=== PATIENT | male | born 1945 | race Caucasian/White ===

== ENCOUNTER 2017-11-24 08:29 | Inpatient (IN) | payer OTHER ==
[~2017-11-24] VITALS: Ht 167.6 cm; Wt 148.0 kg
[2017-11-24] VITALS (10 sets, daily range): BP systolic 70–112; BP diastolic 50–76
[2017-11-24 08:51] LABS: BASOPHIL (%) 0.7 % (0-1); BASOPHIL COUNT 0.1 K/uL (0-0.1); EOSINOPHIL (%) 4.4 % (0-5); EOSINOPHIL COUNT 0.8 K/uL (0-0.3); HEMATOCRIT 35.9 % (38.0-50.0); HEMOGLOBIN 11.5 G/DL (12.5-16.6); IMMATURE GRANULOCYTE (%) 2.3 % (0.0-0.7); LYMPHOCYTE (%) 25.2 % (15-42); LYMPHOCYTE COUNT 4.6 K/uL (1.0-2.8); MCH 26.3 PG (29.0-34.0); MONOCYTE (%) 6.9 % (3-12); MONOCYTE COUNT 1.3 K/uL (0-0.8); NEUTROPHIL (%) 60.5 % (45-76); PLATELET COUNT 362 K/uL (156-360); RBC DIS.WIDTH-CV 14.9 % (11.8-14.6); RBC DIS.WIDTH-SD 44.3 % (39-53); RED BLOOD COUNT 4.38 M/uL (4.00-5.50); WHITE BLOOD COUNT 18.1 K/uL (4.1-10.2)
[2017-11-24 08:56] LABS: INTER. NORMALIZED RATIO 1.2
[2017-11-24 08:59] LABS: PTT 29.5 SEC (25-37)
[2017-11-24 09:04] LABS: COMMENTS - BLOOD GASES A+C+; DEVICE VENT; FI02 60 %; PCO2 42 mm Hg (35-45); PEEP 5 CM/H20; PO2 127 mm Hg (80-100); PRES. SUPPORT 15 CM/H2O; SITE LR; TIDAL VOLUME 500 ML; TOTAL RESP RATE 23 resp/min
[2017-11-24 09:05] LABS: BASE EXCESS -5.4 mEq/L (-3 to +3); BICARBONATE 20.7 mEq/L (22-26); CARBOXY HGB 1.2 % (0-5); METHEMOGLOBIN 0.7 % (0-1.5)
[2017-11-24 09:20] LABS: CHLORIDE 104 MEQ/L (99-109); CREATININE 1.9 MG/DL (0.6-1.3); GFR ESTIMATE (CALCULATED) 37 mL/min/ (58.99-99999); GLUCOSE 308 mg/dL (70-99); MAGNESIUM 1.3 mg/dl (1.3-2.7); POTASSIUM 4.3 MEQ/L (3.7-5.4); SODIUM 139 MEQ/L (136-147); UREA NITROGEN (BUN) 33 mg/dL (9-23)
[2017-11-24 09:27] LABS: TROP-I INTERPRETATION NEGATIVE; TROPONIN-I < 0.01 ng/mL (0.0-0.30)
[2017-11-24] MEDS ORDERED: METFORMIN HCL1000 MG PO (13:41)
[2017-11-24] MEDS ORDERED: POTASSIUM CHLO10 ME4 PO (13:42)
[2017-11-24] MEDS ORDERED: GLIPIZIDE5 MG PO (13:42)
[2017-11-24] MEDS ORDERED: VITAMIN D31000 UNI2 PO (13:43)
[2017-11-24] MEDS ORDERED: ASPIR-LOW81 MG PO (13:43)
[2017-11-24] MEDS ORDERED: LOSARTAN POTAS100 MG PO (13:43)
[2017-11-24] MEDS ORDERED: LASIX40 MG PO ×2 (13:43)
[2017-11-24] MEDS ORDERED: METOPROLOL TART50 MG PO (13:44)
[2017-11-24] MEDS ORDERED: RANITIDINE HCL150 MG PO (13:44)
[2017-11-24 17:56] LABS: TROP-I INTERPRETATION NEGATIVE; TROPONIN-I 0.17 ng/mL (0.0-0.30)
[2017-11-25] VITALS (24 sets, daily range): BP systolic 91–145; BP diastolic 59–92
[2017-11-25 06:29] LABS: HEMATOCRIT 32.1 % (38.0-50.0); HEMOGLOBIN 9.9 G/DL (12.5-16.6); MCH 25.3 PG (29.0-34.0); MCHC 30.8 G/DL (30.0-36.0); MCV 82.1 FL (86-99); RBC DIS.WIDTH-CV 14.9 % (11.8-14.6); RBC DIS.WIDTH-SD 44.3 % (39-53); RED BLOOD COUNT 3.91 M/uL (4.00-5.50); WHITE BLOOD COUNT 11.9 K/uL (4.1-10.2)
[2017-11-25 06:40] LABS: CHLORIDE 107 MEQ/L (99-109); CREATININE 1.9 MG/DL (0.6-1.3); GFR ESTIMATE (CALCULATED) 37 mL/min/ (58.99-99999); GLUCOSE 177 mg/dL (70-99); MAGNESIUM 1.4 mg/dl (1.3-2.7); PHOSPHORUS 4.1 mg/dL (2.5-4.9); POTASSIUM 4.2 MEQ/L (3.7-5.4); SODIUM 143 MEQ/L (136-147); UREA NITROGEN (BUN) 33 mg/dL (9-23)
[2017-11-25 06:43] LABS: PLATELET COUNT 251 K/uL (156-360)
[2017-11-25 18:41] LABS: TROP-I INTERPRETATION NEGATIVE; TROPONIN-I 0.09 ng/mL (0.0-0.30)
[2017-11-26] VITALS (19 sets, daily range): BP systolic 86–154; BP diastolic 61–133
[2017-11-26 05:22] LABS: HEMATOCRIT 31.3 % (38.0-50.0); HEMOGLOBIN 9.7 G/DL (12.5-16.6); MCH 25.4 PG (29.0-34.0); MCV 81.9 FL (86-99); PLATELET COUNT 246 K/uL (156-360); RBC DIS.WIDTH-CV 14.8 % (11.8-14.6); RBC DIS.WIDTH-SD 44.2 % (39-53); RED BLOOD COUNT 3.82 M/uL (4.00-5.50); WHITE BLOOD COUNT 11.4 K/uL (4.1-10.2)
[2017-11-26 06:03] LABS: CHLORIDE 109 MEQ/L (99-109); CREATININE 1.7 MG/DL (0.6-1.3); GFR ESTIMATE (CALCULATED) 43 mL/min/ (58.99-99999); GLUCOSE 167 mg/dL (70-99); MAGNESIUM 1.6 mg/dl (1.3-2.7); PHOSPHORUS 4.5 mg/dL (2.5-4.9); POTASSIUM 4.2 MEQ/L (3.7-5.4); SODIUM 145 MEQ/L (136-147); UREA NITROGEN (BUN) 29 mg/dL (9-23)
[2017-11-27] VITALS (20 sets, daily range): BP systolic 75–166; BP diastolic 48–127
[2017-11-27 05:14] LABS: HEMATOCRIT 31.4 % (38.0-50.0); HEMOGLOBIN 9.9 G/DL (12.5-16.6); MCHC 31.5 G/DL (30.0-36.0); MCV 82.4 FL (86-99); PLATELET COUNT 239 K/uL (156-360); RBC DIS.WIDTH-CV 14.8 % (11.8-14.6); RED BLOOD COUNT 3.81 M/uL (4.00-5.50); WHITE BLOOD COUNT 11.4 K/uL (4.1-10.2)
[2017-11-27 06:00] LABS: CHLORIDE 108 MEQ/L (99-109); CREATININE 1.8 MG/DL (0.6-1.3); GFR ESTIMATE (CALCULATED) 40 mL/min/ (58.99-99999); GLUCOSE 288 mg/dL (70-99); MAGNESIUM 1.7 mg/dl (1.3-2.7); PHOSPHORUS 4.4 mg/dL (2.5-4.9); POTASSIUM 4.1 MEQ/L (3.7-5.4); SODIUM 142 MEQ/L (136-147); UREA NITROGEN (BUN) 30 mg/dL (9-23)
[2017-11-27 08:51] LABS: CARBOXY HGB 1.4 % (0-5); PCO2 39 mm Hg (35-45); PO2 69 mm Hg (80-100); pH 7.38 (7.35-7.45)
[2017-11-27 08:52] LABS: BASE EXCESS -1.8 mEq/L (-3 to +3); BICARBONATE 23.1 mEq/L (22-26); COMMENTS - BLOOD GASES A+C+; DEVICE NC; METHEMOGLOBIN 0.7 % (0-1.5); O2 FLOW 4 L/MIN; SITE RR; TOTAL RESP RATE 20 resp/min
[2017-11-27 09:11] LABS: APPEARANCE CLOUDY ((CLEAR)); BILIRUBIN NEGATIVE; BLOOD NEGATIVE; COLOR YELLOW ((YELLOW)); GLUCOSE (STRIP) 50; KETONES NEGATIVE; LEUKOCYTES NEGATIVE; NITRITE NEGATIVE; PROTEIN (STRIP) NEGATIVE; UROBILINOGEN 0.2 MG/DL (0.2-1.0)
[2017-11-27 10:06] LABS: BACTERIA NONE SEEN /HPF; EPITHELIAL CELLS 1+ /HPF; HYALINE CASTS RARE /LPF; MUCUS NONE SEEN /LPF; RED BLOOD CELLS NONE SEEN /HPF (0-5); UCUL ADDED? NO; URIC ACID CRYSTALS 3+ /HPF; WHITE BLOOD CELLS 0-5 /HPF (0-5)
[2017-11-28] VITALS (18 sets, daily range): BP systolic 14–143; BP diastolic 46–97
[2017-11-28 05:47] LABS: HEMATOCRIT 29.7 % (38.0-50.0); HEMOGLOBIN 9.2 G/DL (12.5-16.6); MCH 25.5 PG (29.0-34.0); MCV 82.3 FL (86-99); PLATELET COUNT 225 K/uL (156-360); RBC DIS.WIDTH-CV 14.9 % (11.8-14.6); RBC DIS.WIDTH-SD 44.2 % (39-53); RED BLOOD COUNT 3.61 M/uL (4.00-5.50)
[2017-11-28 06:15] LABS: CHLORIDE 107 MEQ/L (99-109); GFR ESTIMATE (CALCULATED) 35 mL/min/ (58.99-99999); GLUCOSE 227 mg/dL (70-99); MAGNESIUM 1.9 mg/dl (1.3-2.7); PHOSPHORUS 3.8 mg/dL (2.5-4.9); POTASSIUM 4.1 MEQ/L (3.7-5.4); SODIUM 141 MEQ/L (136-147); UREA NITROGEN (BUN) 32 mg/dL (9-23)
[2017-11-28 12:30] LABS: HEMOGLOBIN A1c (GLYCOHEMOGLOB) 6.6 % (Below 5.7)
[2017-11-29] VITALS (16 sets, daily range): BP systolic 110–150; BP diastolic 66–100
[2017-11-29 05:23] LABS: HEMATOCRIT 30.3 % (38.0-50.0); HEMOGLOBIN 9.5 G/DL (12.5-16.6); MCH 25.7 PG (29.0-34.0); MCHC 31.4 G/DL (30.0-36.0); MCV 81.9 FL (86-99); PLATELET COUNT 261 K/uL (156-360); RBC DIS.WIDTH-CV 14.8 % (11.8-14.6); WHITE BLOOD COUNT 10.3 K/uL (4.1-10.2)
[2017-11-29 06:12] LABS: CHLORIDE 108 MEQ/L (99-109); CREATININE 1.9 MG/DL (0.6-1.3); GFR ESTIMATE (CALCULATED) 37 mL/min/ (58.99-99999); GLUCOSE 213 mg/dL (70-99); MAGNESIUM 2.1 mg/dl (1.3-2.7); PHOSPHORUS 3.8 mg/dL (2.5-4.9); SODIUM 143 MEQ/L (136-147); UREA NITROGEN (BUN) 31 mg/dL (9-23)
[2017-11-30 03:05] VITALS: BP 127/70
[2017-11-30 07:38] VITALS: BP 143/82
[2017-11-30 10:04] LABS: HEMATOCRIT 31.3 % (38.0-50.0); MCHC 31.9 G/DL (30.0-36.0); MCV 81.5 FL (86-99); PLATELET COUNT 261 K/uL (156-360); RBC DIS.WIDTH-CV 14.9 % (11.8-14.6); RBC DIS.WIDTH-SD 43.8 % (39-53); RED BLOOD COUNT 3.84 M/uL (4.00-5.50); WHITE BLOOD COUNT 11.2 K/uL (4.1-10.2)
[2017-11-30 10:21] LABS: CHLORIDE 108 mEq/L (99-109); POTASSIUM 4.1 mEq/L (3.7-5.4); SODIUM 143 mEq/L (136-147)
[2017-11-30 10:22] LABS: GLUCOSE 288 mg/dL (70-99)
[2017-11-30 10:26] LABS: GFR ESTIMATE (CALCULATED) 35 mL/min/ (58.99-99999)
[2017-11-30 10:27] LABS: UREA NITROGEN (BUN) 31 mg/dL (9-23)
[2017-11-30 11:34] VITALS: BP 103/55
[2017-11-30 17:09] VITALS: BP 129/45
[2017-11-30 19:01] VITALS: BP 142/83
[2017-11-30 22:54] VITALS: BP 108/64
[2017-12-01 03:46] VITALS: BP 124/63
[2017-12-01 06:32] LABS: CHLORIDE 108 MEQ/L (99-109); POTASSIUM 4.2 MEQ/L (3.7-5.4); SODIUM 143 MEQ/L (136-147)
[2017-12-01 06:38] LABS: CREATININE 2.1 MG/DL (0.6-1.3); GFR ESTIMATE (CALCULATED) 33 mL/min/ (58.99-99999); GLUCOSE 189 mg/dL (70-99); UREA NITROGEN (BUN) 36 mg/dL (9-23)
[2017-12-01 07:40] VITALS: BP 115/63
[2017-12-01 11:51] VITALS: BP 125/76
[2017-12-01] MEDS ORDERED: APRESOLINE10 MG PO (13:34)
[2017-12-01] MEDS ORDERED: LOPRESSOR100 M1 PO (13:34)
[2017-12-01] MEDS ORDERED: ELIQUIS5 MG PO (13:34)
[2017-12-01] MEDS ORDERED: FUROSEMIDE40 MG PO (13:34)
[2017-12-02] MEDS ORDERED: COZAAR100 MG PO (09:43)
[2017-12-02] MEDS ORDERED: LASIX40 MG PO ×2 (09:45→09:46)
== END 2017-12-01 16:32 | disposition home health service (06) | DRG 292 ==
LOC: EME 08:29 → EDOF 12:35 → 4WEST 12:35 → ENRESERV 12:36 → 4WEST 13:42 → ENRESERV 11-29 16:15 → 5EAST 11-29 19:06
PROVIDERS: Emergency Medicine; Internal Medicine; Internal Medicine Critical Care Medicine; Physician Assistant; Student in an Organized Health Care Education/Training Program
PROC: 5A09357 Assistance with Respiratory Ventilation, Less than 24 Consecutive Hours, Continuous Positive Airway Pressure (ICD-10-PCS; principal; 2017-11-24)
DX: I11.0 Hypertensive heart disease with heart failure (principal); I50.23 Acute on chronic systolic (congestive) heart failure; J44.9 Chronic obstructive pulmonary disease, unspecified; I25.10 Atherosclerotic heart disease of native coronary artery without angina pectoris; E66.01 Morbid (severe) obesity due to excess calories; E11.9 Type 2 diabetes mellitus without complications; I48.0 Paroxysmal atrial fibrillation; I48.92 Unspecified atrial flutter; E78.5 Hyperlipidemia, unspecified; I25.2 Old myocardial infarction; I08.0 Rheumatic disorders of both mitral and aortic valves; I27.20 Pulmonary hypertension, unspecified; Z68.43 Body mass index [BMI] 50.0-59.9, adult; I44.7 Left bundle-branch block, unspecified; G47.33 Obstructive sleep apnea (adult) (pediatric); Z79.4 Long term (current) use of insulin; I47.2 Ventricular tachycardia; T50.2X5A Adverse effect of carbonic-anhydrase inhibitors, benzothiadiazides and other diuretics, initial encounter; N28.9 Disorder of kidney and ureter, unspecified; I25.5 Ischemic cardiomyopathy; Z79.01 Long term (current) use of anticoagulants
CPT/HCPCS: 36600; 71045; 80048; 80202; 81003; 82803; 82948; 83036; 83605; 83735; 83880; 84100; 84145 90; 84484; 85025; 85027; 85610; 85730; 87040; 87641; 93005; 93306; 93970; 94002; 94003; 94640; 94660; 94760; 94799; 99281; 99285; J0692; J1815; J1940; J2543; J3370; J7030; J7040; J7050

== ENCOUNTER 2017-12-02 07:19 | Inpatient (IN) | payer OTHER ==
[2017-12-02] VITALS (24 sets, daily range): BP systolic 92–150; BP diastolic 46–110
[~2017-12-02] VITALS: Ht 167.6 cm; Wt 152.0 kg
[~2017-12-02 07:19] MED LIST: APRESOLINE10 MG PO; ASPIR-LOW81 MG PO; ELIQUIS5 MG PO; FUROSEMIDE40 MG PO; GLIPIZIDE5 MG PO; LASIX40 MG PO; LOPRESSOR100 M1 PO; LOSARTAN POTAS100 MG PO; METFORMIN HCL1000 MG PO; METOPROLOL TART50 MG PO; POTASSIUM CHLO10 ME4 PO; RANITIDINE HCL150 MG PO; VITAMIN D31000 UNI2 PO
[2017-12-02 07:40] LABS: BASOPHIL (%) 0.7 % (0-1); BASOPHIL COUNT 0.2 K/uL (0-0.1); EOSINOPHIL (%) 5.9 % (0-5); EOSINOPHIL COUNT 1.5 K/uL (0-0.3); HEMATOCRIT 34.9 % (38.0-50.0); HEMOGLOBIN 10.9 G/DL (12.5-16.6); IMMATURE GRANULOCYTE (%) 2.5 % (0.0-0.7); LYMPHOCYTE (%) 25.5 % (15-42); LYMPHOCYTE COUNT 6.3 K/uL (1.0-2.8); MCH 26.3 PG (29.0-34.0); MCHC 31.2 G/DL (30.0-36.0); MCV 84.1 FL (86-99); MONOCYTE (%) 6.9 % (3-12); MONOCYTE COUNT 1.7 K/uL (0-0.8); NEUTROPHIL (%) 58.5 % (45-76); NEUTROPHIL COUNT 14.5 K/uL (1.8-6.4); RBC DIS.WIDTH-CV 15.1 % (11.8-14.6); RBC DIS.WIDTH-SD 45.7 % (39-53); RED BLOOD COUNT 4.15 M/uL (4.00-5.50); WHITE BLOOD COUNT 24.7 K/uL (4.1-10.2)
[2017-12-02 07:41] LABS: PLATELET COUNT 375 K/uL (156-360)
[2017-12-02 07:46] LABS: INTER. NORMALIZED RATIO 1.4
[2017-12-02 07:48] LABS: PTT 31.1 SEC (25-37)
[2017-12-02 08:11] LABS: CHLORIDE 105 MEQ/L (99-109); CREATININE 2.2 MG/DL (0.6-1.3); GFR ESTIMATE (CALCULATED) 32 mL/min/ (58.99-99999); POTASSIUM 4.1 MEQ/L (3.7-5.4); SODIUM 138 MEQ/L (136-147); UREA NITROGEN (BUN) 35 mg/dL (9-23)
[2017-12-02 08:12] LABS: GLUCOSE 342 mg/dL (70-99)
[2017-12-02 08:30] LABS: TROP-I INTERPRETATION NEGATIVE; TROPONIN-I 0.03 ng/mL (0.0-0.30)
[2017-12-02 08:43] LABS: BASE EXCESS -8.9 mEq/L (-3 to +3); BICARBONATE 21 mEq/L (22-26); CARBOXY HGB 1.9 % (0-5); METHEMOGLOBIN 0.9 % (0-1.5); PCO2 66 mm Hg (35-45); PO2 74 mm Hg (80-100); pH 7.11 (7.35-7.45)
[2017-12-02 08:44] LABS: COMMENTS - BLOOD GASES A+C+; DEVICE NRBR; FI02 100 %; MECHANICAL RATE 33 resp/min; O2 FLOW 15 L/MIN; SITE RR
[2017-12-02 09:41] LABS: COMMENTS - BLOOD GASES A+C+; SITE RR
[2017-12-02 09:42] LABS: BASE EXCESS -8.1 mEq/L (-3 to +3); BICARBONATE 19.6 mEq/L (22-26); CARBOXY HGB 1.3 % (0-5); DEVICE VENT; FI02 50 %; METHEMOGLOBIN 1.1 % (0-1.5); MODE SPONT; PCO2 49 mm Hg (35-45); PEEP 5 CM/H20; PO2 92 mm Hg (80-100); PRES. SUPPORT 15 CM/H2O; TOTAL RESP RATE 21 resp/min; pH 7.21 (7.35-7.45)
[2017-12-02] MEDS ORDERED: COZAAR100 MG PO (09:43)
[2017-12-02] MEDS ORDERED: LASIX40 MG PO ×2 (09:45→09:46)
[2017-12-02 12:07] LABS: CARBOXY HGB 2.4 % (0-5); COMMENTS - BLOOD GASES A+C+; DEVICE 980 PB MASK; FI02 40 %; MODE SPONT NIV; O2 SATURATION (CALCULATED) 97.4 % (95-99); PCO2 41 mm Hg (35-45); PEEP 5 CM/H20; PO2 111 mm Hg (80-100); PRES. SUPPORT 15 CM/H2O; SITE RR; TOTAL RESP RATE 14 resp/min; pH 7.32 (7.35-7.45)
[2017-12-02 12:08] LABS: BASE EXCESS -4.7 mEq/L (-3 to +3); BICARBONATE 21.1 mEq/L (22-26); METHEMOGLOBIN 0 % (0-1.5)
[2017-12-03] VITALS (23 sets, daily range): BP systolic 53–145; BP diastolic 28–87
[2017-12-03 00:53] LABS: APPEARANCE CLEAR ((CLEAR)); BILIRUBIN NEGATIVE; BLOOD MODERATE; COLOR YELLOW ((YELLOW)); GLUCOSE (STRIP) NEGATIVE; KETONES NEGATIVE; LEUKOCYTES NEGATIVE; NITRITE NEGATIVE; PROTEIN (STRIP) NEGATIVE; SPECIFIC GRAVITY 1.018 (1.000-1.030); UROBILINOGEN 0.2 MG/DL (0.2-1.0)
[2017-12-03 01:01] LABS: BACTERIA RARE /HPF; EPITHELIAL CELLS RARE /HPF; MUCUS TRACE /LPF; RED BLOOD CELLS 15-20 /HPF (0-5); UCUL ADDED? YES
[2017-12-03 05:59] LABS: HEMATOCRIT 27.5 % (38.0-50.0); HEMOGLOBIN 8.4 G/DL (12.5-16.6); MCH 25.5 PG (29.0-34.0); MCHC 30.5 G/DL (30.0-36.0); MCV 83.3 FL (86-99); RBC DIS.WIDTH-CV 14.8 % (11.8-14.6); RBC DIS.WIDTH-SD 45.1 % (39-53); WHITE BLOOD COUNT 10.6 K/uL (4.1-10.2)
[2017-12-03 06:18] LABS: CHLORIDE 108 MEQ/L (99-109); CREATININE 1.9 MG/DL (0.6-1.3); GFR ESTIMATE (CALCULATED) 37 mL/min/ (58.99-99999); GLUCOSE 165 mg/dL (70-99); POTASSIUM 4.1 MEQ/L (3.7-5.4); SODIUM 142 MEQ/L (136-147); UREA NITROGEN (BUN) 30 mg/dL (9-23)
[2017-12-03 06:21] LABS: PLATELET COUNT 222 K/uL (156-360)
[2017-12-03 06:22] LABS: PLAT.SUFFICIENCY ADEQUATE
[2017-12-03 11:14] LABS: COMMENTS - BLOOD GASES A+C+; DEVICE 980 PB MASK; FI02 30 %; MODE SPONT NIV; PCO2 37 mm Hg (35-45); PEEP 5 CM/H20; PO2 96 mm Hg (80-100); PRES. SUPPORT 15 CM/H2O; SITE RR; TOTAL RESP RATE 13 resp/min; pH 7.39 (7.35-7.45)
[2017-12-03 11:15] LABS: BASE EXCESS -2.3 mEq/L (-3 to +3); BICARBONATE 22.4 mEq/L (22-26); CARBOXY HGB 1.7 % (0-5); METHEMOGLOBIN 1.6 % (0-1.5); O2 SATURATION (CALCULATED) 94.5 % (95-99)
[2017-12-04] VITALS (23 sets, daily range): BP systolic 100–1136; BP diastolic 55–112
[2017-12-04 05:42] LABS: BASOPHIL (%) 0.5 % (0-1); BASOPHIL COUNT 0.1 K/uL (0-0.1); EOSINOPHIL (%) 4.6 % (0-5); EOSINOPHIL COUNT 0.4 K/uL (0-0.3); HEMATOCRIT 28.1 % (38.0-50.0); HEMOGLOBIN 8.6 G/DL (12.5-16.6); IMMATURE GRANULOCYTE (%) 1.5 % (0.0-0.7); LYMPHOCYTE (%) 9.7 % (15-42); LYMPHOCYTE COUNT 0.9 K/uL (1.0-2.8); MCH 25.7 PG (29.0-34.0); MCHC 30.6 G/DL (30.0-36.0); MCV 84.1 FL (86-99); MONOCYTE (%) 7.6 % (3-12); MONOCYTE COUNT 0.7 K/uL (0-0.8); NEUTROPHIL (%) 76.1 % (45-76); PLATELET COUNT 190 K/uL (156-360); RBC DIS.WIDTH-CV 14.9 % (11.8-14.6); RBC DIS.WIDTH-SD 45.1 % (39-53); RED BLOOD COUNT 3.34 M/uL (4.00-5.50); WHITE BLOOD COUNT 9.3 K/uL (4.1-10.2)
[2017-12-04 06:12] LABS: CHLORIDE 110 MEQ/L (99-109); CREATININE 1.5 MG/DL (0.6-1.3); GFR ESTIMATE (CALCULATED) 49 mL/min/ (58.99-99999); GLUCOSE 171 mg/dL (70-99); MAGNESIUM 2.4 mg/dl (1.3-2.7); PHOSPHORUS 2.9 mg/dL (2.5-4.9); POTASSIUM 4.1 MEQ/L (3.7-5.4); SODIUM 142 MEQ/L (136-147); UREA NITROGEN (BUN) 22 mg/dL (9-23)
[2017-12-04 07:43] LABS: DIGOXIN 0.9 ng/mL (0.8-2.0)
[2017-12-05] VITALS (21 sets, daily range): BP systolic 114–157; BP diastolic 62–102
[2017-12-05 05:41] LABS: CHLORIDE 110 MEQ/L (99-109); CREATININE 1.5 MG/DL (0.6-1.3); GFR ESTIMATE (CALCULATED) 49 mL/min/ (58.99-99999); GLUCOSE 175 mg/dL (70-99); POTASSIUM 3.6 MEQ/L (3.7-5.4); SODIUM 146 MEQ/L (136-147); UREA NITROGEN (BUN) 19 mg/dL (9-23)
[2017-12-05 09:06] LABS: MAGNESIUM 2.4 mg/dl (1.3-2.7); PHOSPHORUS 2.5 mg/dL (2.5-4.9)
[2017-12-06] VITALS (24 sets, daily range): BP systolic 91–145; BP diastolic 48–88
[2017-12-06 08:57] LABS: BASOPHIL (%) 0.8 % (0-1); BASOPHIL COUNT 0.1 K/uL (0-0.1); EOSINOPHIL (%) 5.7 % (0-5); EOSINOPHIL COUNT 0.6 K/uL (0-0.3); HEMATOCRIT 31.9 % (38.0-50.0); HEMOGLOBIN 9.6 G/DL (12.5-16.6); IMMATURE GRANULOCYTE (%) 1.4 % (0.0-0.7); LYMPHOCYTE COUNT 1.2 K/uL (1.0-2.8); MCH 25.4 PG (29.0-34.0); MCHC 30.1 G/DL (30.0-36.0); MCV 84.4 FL (86-99); MONOCYTE (%) 6.9 % (3-12); MONOCYTE COUNT 0.7 K/uL (0-0.8); NEUTROPHIL (%) 73.2 % (45-76); NEUTROPHIL COUNT 7.4 K/uL (1.8-6.4); PLATELET COUNT 211 K/uL (156-360); RBC DIS.WIDTH-CV 15.2 % (11.8-14.6); RED BLOOD COUNT 3.78 M/uL (4.00-5.50); WHITE BLOOD COUNT 10.1 K/uL (4.1-10.2)
[2017-12-06 09:20] LABS: CHLORIDE 110 MEQ/L (99-109); CREATININE 1.5 MG/DL (0.6-1.3); GFR ESTIMATE (CALCULATED) 49 mL/min/ (58.99-99999); GLUCOSE 197 mg/dL (70-99); MAGNESIUM 2.5 mg/dl (1.3-2.7); POTASSIUM 4.3 MEQ/L (3.7-5.4); SODIUM 144 MEQ/L (136-147); UREA NITROGEN (BUN) 18 mg/dL (9-23)
[2017-12-07] VITALS (18 sets, daily range): BP systolic 101–154; BP diastolic 49–86
[2017-12-07 05:28] LABS: BASOPHIL (%) 0.5 % (0-1); BASOPHIL COUNT 0.1 K/uL (0-0.1); EOSINOPHIL (%) 5.8 % (0-5); EOSINOPHIL COUNT 0.5 K/uL (0-0.3); HEMATOCRIT 29.7 % (38.0-50.0); HEMOGLOBIN 9.1 G/DL (12.5-16.6); IMMATURE GRANULOCYTE (%) 1.4 % (0.0-0.7); LYMPHOCYTE (%) 13.3 % (15-42); LYMPHOCYTE COUNT 1.2 K/uL (1.0-2.8); MCH 25.4 PG (29.0-34.0); MCHC 30.6 G/DL (30.0-36.0); MONOCYTE (%) 6.8 % (3-12); MONOCYTE COUNT 0.6 K/uL (0-0.8); NEUTROPHIL (%) 72.2 % (45-76); NEUTROPHIL COUNT 6.6 K/uL (1.8-6.4); PLATELET COUNT 235 K/uL (156-360); RBC DIS.WIDTH-CV 14.9 % (11.8-14.6); RED BLOOD COUNT 3.58 M/uL (4.00-5.50); WHITE BLOOD COUNT 9.1 K/uL (4.1-10.2)
[2017-12-07 05:54] LABS: CHLORIDE 109 MEQ/L (99-109); CREATININE 1.5 MG/DL (0.6-1.3); GFR ESTIMATE (CALCULATED) 49 mL/min/ (58.99-99999); GLUCOSE 166 mg/dL (70-99); POTASSIUM 4.1 MEQ/L (3.7-5.4); SODIUM 146 MEQ/L (136-147); UREA NITROGEN (BUN) 22 mg/dL (9-23)
[2017-12-07 05:55] LABS: MAGNESIUM 2.5 mg/dl (1.3-2.7); PHOSPHORUS 2.6 mg/dL (2.5-4.9)
[2017-12-07 06:46] LABS: DIGOXIN 0.8 ng/mL (0.8-2.0)
[2017-12-08 03:19] VITALS: BP 132/71
[2017-12-08 07:30] VITALS: BP 131/63
[2017-12-08 09:22] LABS: HEMATOCRIT 33.2 % (38.0-50.0); HEMOGLOBIN 10.3 G/DL (12.5-16.6); MCV 80.6 FL (86-99); PLATELET COUNT 244 K/uL (156-360); RBC DIS.WIDTH-CV 14.8 % (11.8-14.6); RBC DIS.WIDTH-SD 43.3 % (39-53); RED BLOOD COUNT 4.12 M/uL (4.00-5.50)
[2017-12-08 09:49] LABS: CHLORIDE 103 MEQ/L (99-109); CREATININE 1.4 MG/DL (0.6-1.3); GFR ESTIMATE (CALCULATED) 53 mL/min/ (58.99-99999); GLUCOSE 222 mg/dL (70-99); POTASSIUM 3.7 MEQ/L (3.7-5.4); SODIUM 141 MEQ/L (136-147); UREA NITROGEN (BUN) 28 mg/dL (9-23)
[2017-12-08 10:59] LABS: ABSOLUTE RETICULOCYTE CT. 0.08 M/uL (0.02-0.08); IMM.RETIC FRACTION 24.9 % (3-19); RETIC HGB EQUIVALENT 25.1 (28-36); RETICULOCYTE COUNT 1.9 % (0.5-1.8)
[2017-12-08 11:29] LABS: FERRITIN 196 NG/ML (22-322); IRON 34 MCG/DL (35-150); TRANSFERRIN (TIBC) 211.9 mg/dL (215-380); TRANSFERRIN SATUR. 16 % (20-55)
[2017-12-08 11:30] LABS: FOLIC ACID (FOLATE) 8.3 NG/ML (5.0-22.0)
[2017-12-08 11:55] VITALS: BP 108/57
[2017-12-08 16:40] VITALS: BP 117/58
[2017-12-08 19:15] VITALS: BP 131/58
[2017-12-08 23:30] VITALS: BP 143/73
[2017-12-09 03:22] VITALS: BP 125/71
[2017-12-09 05:33] LABS: BASOPHIL (%) 0.4 % (0-1); EOSINOPHIL (%) 6.6 % (0-5); EOSINOPHIL COUNT 0.6 K/uL (0-0.3); HEMATOCRIT 28.3 % (38.0-50.0); HEMOGLOBIN 8.9 G/DL (12.5-16.6); IMMATURE GRANULOCYTE (%) 1.9 % (0.0-0.7); LYMPHOCYTE (%) 17.1 % (15-42); LYMPHOCYTE COUNT 1.6 K/uL (1.0-2.8); MCH 25.2 PG (29.0-34.0); MCHC 31.4 G/DL (30.0-36.0); MCV 80.2 FL (86-99); MONOCYTE (%) 8.7 % (3-12); MONOCYTE COUNT 0.8 K/uL (0-0.8); NEUTROPHIL (%) 65.3 % (45-76); NEUTROPHIL COUNT 6.2 K/uL (1.8-6.4); PLATELET COUNT 231 K/uL (156-360); RBC DIS.WIDTH-CV 14.8 % (11.8-14.6); RBC DIS.WIDTH-SD 43.1 % (39-53); RED BLOOD COUNT 3.53 M/uL (4.00-5.50); WHITE BLOOD COUNT 9.5 K/uL (4.1-10.2)
[2017-12-09 06:04] LABS: ALKALINE PHOSPHATASE 59 IU/L (3-129); ALT (GPT) 19 IU/L (3-49); AST (GOT) 12 IU/L (2-34); CHLORIDE 104 MEQ/L (99-109); CREATININE 1.7 MG/DL (0.6-1.3); GFR ESTIMATE (CALCULATED) 43 mL/min/ (58.99-99999); GLUCOSE 209 mg/dL (70-99); POTASSIUM 3.2 MEQ/L (3.7-5.4); SODIUM 140 MEQ/L (136-147); TOTAL BILIRUBIN 0.5 MG/DL (0.0-1.0); TOTAL PROTEIN 5.9 G/DL (6.4-8.3); UREA NITROGEN (BUN) 30 mg/dL (9-23)
[2017-12-09 07:14] VITALS: BP 135/64
[2017-12-09 12:04] VITALS: BP 118/60
[2017-12-09 16:44] VITALS: BP 122/58
[2017-12-09 20:00] VITALS: BP 125/72
[2017-12-09 23:38] VITALS: BP 129/74
[2017-12-10 05:44] LABS: BASOPHIL (%) 0.8 % (0-1); BASOPHIL COUNT 0.1 K/uL (0-0.1); EOSINOPHIL COUNT 0.6 K/uL (0-0.3); HEMATOCRIT 29.7 % (38.0-50.0); HEMOGLOBIN 9.5 G/DL (12.5-16.6); IMMATURE GRANULOCYTE (%) 2.5 % (0.0-0.7); LYMPHOCYTE (%) 18.3 % (15-42); LYMPHOCYTE COUNT 1.7 K/uL (1.0-2.8); MCH 25.7 PG (29.0-34.0); MCV 80.3 FL (86-99); MONOCYTE (%) 8.5 % (3-12); MONOCYTE COUNT 0.8 K/uL (0-0.8); NEUTROPHIL (%) 62.9 % (45-76); NEUTROPHIL COUNT 5.8 K/uL (1.8-6.4); PLATELET COUNT 241 K/uL (156-360); RBC DIS.WIDTH-CV 14.9 % (11.8-14.6); RBC DIS.WIDTH-SD 43.3 % (39-53); WHITE BLOOD COUNT 9.2 K/uL (4.1-10.2)
[2017-12-10 06:37] LABS: CHLORIDE 103 MEQ/L (99-109); CREATININE 1.6 MG/DL (0.6-1.3); GFR ESTIMATE (CALCULATED) 46 mL/min/ (58.99-99999); GLUCOSE 234 mg/dL (70-99); POTASSIUM 3.8 MEQ/L (3.7-5.4); SODIUM 140 MEQ/L (136-147); UREA NITROGEN (BUN) 27 mg/dL (9-23)
[2017-12-10 07:12] VITALS: BP 109/54
[2017-12-10 07:16] LABS: DIGOXIN 0.6 ng/mL (0.8-2.0)
[2017-12-10 11:35] VITALS: BP 106/62
[2017-12-10 16:12] VITALS: BP 126/65
[2017-12-10 19:05] VITALS: BP 107/55
[2017-12-11 03:30] VITALS: BP 115/67
[2017-12-11 06:11] LABS: CHLORIDE 102 MEQ/L (99-109); CREATININE 1.6 MG/DL (0.6-1.3); GFR ESTIMATE (CALCULATED) 46 mL/min/ (58.99-99999); GLUCOSE 257 mg/dL (70-99); POTASSIUM 4.2 MEQ/L (3.7-5.4); SODIUM 137 MEQ/L (136-147); UREA NITROGEN (BUN) 30 mg/dL (9-23)
[2017-12-11 08:11] VITALS: BP 126/59
[2017-12-11 12:02] VITALS: BP 111/64
[2017-12-11] MEDS ORDERED: METOPROLOL SUCC25 MG PO (15:23)
[2017-12-11] MEDS ORDERED: DUONEB 2.5-0.5 M3 ML AEROSOL (15:23)
[2017-12-11] MEDS ORDERED: DIGOXIN125 MCG PO (15:23)
[2017-12-11] MEDS ORDERED: ELIQUIS5 MG PO (15:23)
[2017-12-11] MEDS ORDERED: FERROUS SULFAT325 MG PO (15:23)
[2017-12-11] MEDS ORDERED: JANUVIA25 M1 PO (15:25)
== END 2017-12-11 18:49 | DRG 189 ==
LOC: EME 07:19 → EDOF 09:26 → 4WEST 09:26 → ENRESERV 09:29 → 4WEST 10:40 → ENRESERV 12-07 14:03 → 4EAST 12-07 16:15 → ENPENDDIS 12-11 18:00 → 4EAST 12-11 18:49
PROVIDERS: Emergency Medicine; Hospitalist; Physician Assistant Medical; Specialist; Surgery
PROC: 5A0945Z Assistance with Respiratory Ventilation, 24-96 Consecutive Hours (ICD-10-PCS; principal; 2017-12-02)
DX: J96.01 Acute respiratory failure with hypoxia (principal); I13.0 Hypertensive heart and chronic kidney disease with heart failure and stage 1 through stage 4 chronic kidney disease, or unspecified chronic kidney disease; J18.9 Pneumonia, unspecified organism; I25.10 Atherosclerotic heart disease of native coronary artery without angina pectoris; E78.5 Hyperlipidemia, unspecified; E66.01 Morbid (severe) obesity due to excess calories; G47.33 Obstructive sleep apnea (adult) (pediatric); I50.23 Acute on chronic systolic (congestive) heart failure; I48.2 Chronic atrial fibrillation; I25.5 Ischemic cardiomyopathy; N18.3 Chronic kidney disease, stage 3 (moderate); E11.22 Type 2 diabetes mellitus with diabetic chronic kidney disease; I44.7 Left bundle-branch block, unspecified; S80.822A Blister (nonthermal), left lower leg, initial encounter; F41.9 Anxiety disorder, unspecified; D50.9 Iron deficiency anemia, unspecified; N17.9 Acute kidney failure, unspecified; J44.0 Chronic obstructive pulmonary disease with (acute) lower respiratory infection; Z68.43 Body mass index [BMI] 50.0-59.9, adult; Z87.891 Personal history of nicotine dependence
CPT/HCPCS: 36600; 71045; 80047; 80048; 80053; 80162; 80202; 81003; 82272; 82607; 82728; 82746; 82948; 83540; 83605; 83735; 83880; 84100; 84466; 84484; 85025; 85027; 85046; 85610; 85730; 87040; 87086; 87641; 93005; 94002; 94003; 94640; 94660; 94760; 94799; 99281; 99285; J0282; J0692; J1160; J1815; J1940; J2060; J3370; J3480; S0028